=== PATIENT | male | born 1955 | race African-American/Black ===

== ENCOUNTER 2019-07-12 03:50 | Emergency (ER) | payer MEDICARE, BC, OTHER ==
[2019-07-12] MEDS ORDERED: LIDOCAINE 1% INJ-PF (10 MG/ML) 30 ML SDV INJ ONE (05:40)
[2019-07-12] MEDS ORDERED: LIDOCAINE 4% TRANSPARENT DRESSING 5 GM KIT TP ONE (05:42)
[2019-07-12] MEDS ORDERED: DIPH/PERTUSS(ACELL)/TETANUS VAC/PF 0.5 ML SYR (>=10YO) IM ONE (05:42)
--- NOTE | 2019-07-12 05:44 | ER Document Report ---
ED Wound - General Chief Complaint: Fall Injury Stated Complaint: FALL/RIGHT EAR LACERATION Time Seen by Provider: 07/12/19 05:28 Primary Care Provider: MELIDA GIANG MD [Primary Care Provider] - Follow up as needed Notes: Patient is a 64-year-old male that comes emergency department for chief complaint of a fall, he states that he tripped, fell forward, collided on a concrete wall and fell to the concrete ground. He states this caused a laceration to the back of his right ear that would not stop bleeding. He reports a very mild headache. He denies loss of consciousness, vomiting, focal numbness or weakness, visual changes. He also sustained a very mild abrasions to his right elbow and right knee without swelling or current pain to those areas. He denies any other complaints or any other injuries. He has not on a blood thinner except baby aspirin daily. Family at bedside. TRAVEL OUTSIDE OF THE [place] IN LAST 30 DAYS: No - Related Data Allergies/Adverse Reactions: No Known Allergies Allergy (Unverified 09/27/11 20:11) Home Medications: synthroid daily. asa daily Past Medical History - General Information source: Patient - Social History Smoking Status: Never Smoker Frequency of alcohol use: None Drug Abuse: None Lives with: Family Family History: Reviewed & Not Pertinent Patient has suicidal ideation: No Patient has homicidal ideation: No Pulmonary Medical History: Denies: Hx Tuberculosis Past Surgical History: Denies: Hx Appendectomy, Hx Bowel Surgery, Hx Cholecystectomy, Hx Coronary Artery Bypass Graft, Hx Gastric Bypass Surgery, Hx Herniorrhaphy, Hx Pacemaker, Hx Tonsillectomy - Immunizations Hx Diphtheria, Pertussis, Tetanus Vaccination: Yes Review of Systems - Review of Systems Constitutional: See HPI EENT: No symptoms reported Cardiovascular: No symptoms reported Respiratory: No symptoms reported Gastrointestinal: No symptoms reported Genitourinary: No symptoms reported Male Genitourinary: No symptoms reported Musculoskeletal: See HPI Skin: No symptoms reported Hematologic/Lymphatic: No symptoms reported Neurological/Psychological: See HPI Physical Exam - Vital signs Vitals: Temp Pulse Resp BP Pulse Ox 98.1 F 72 20 147/78 H 99 07/12/19 03:56 07/12/19 03:56 07/12/19 03:56 07/12/19 03:56 07/12/19 03:56 - Notes Notes: GENERAL: Alert, interacts well. No acute distress. HEAD: Normocephalic. Dried blood over the right posterior ear at the helix without swelling. Does not appear to affect the cartilage of the ear. No other signs of trauma over the head. EYES: Pupils equal, round, and reactive to light. Extraocular movements intact. ENT: Oral mucosa moist, tongue midline. Oropharynx unremarkable. Airway patent. Nares patent, no nasal septal hematoma, TM's intact. NECK: Full range of motion. Supple. Trachea midline. LUNGS: Clear to auscultation bilaterally, no wheezes, rales, or rhonchi. No respiratory distress. No signs of trauma HEART: Regular rate and rhythm. No murmur ABDOMEN: Soft, non-tender. Non-distended. Bowel sounds present in all 4 quadrants. No signs of trauma GENITOURINARY: Deferred EXTREMITIES: Abrasion over the right elbow and over the right knee at the joints. No soft tissue swelling, full range of motion, no tenderness over the bony areas, normal distal neurovascular exam. Unremarkable extremities otherwise. BACK: no cervical, thoracic, lumbar midline tenderness. No saddle anesthesia, normal distal neurovascular exam. Moves all extremities in full range of motion. NEUROLOGICAL: Alert and oriented x3. Normal speech. Cranial nerves II through XII grossly intact. PSYCH: Normal affect, normal mood. SKIN: Warm, dry, normal turgor. No rashes or lesions noted. Course - Re-evaluation Re-evalutation: CT of the head and neck performed because of head injury and advanced age along with mechanical fall. These were negative. No bony tenderness over the abrasions over the extremities. Laceration over the helix of the right ear was repaired with sutures after thorough cleansing. Discussed wound care, head injury precautions follow-up, return precautions. Patient and state appreciation and agreement. Stable at time of discharge. - Vital Signs Vital signs: Temp Pulse Resp BP Pulse Ox 98.8 F 51 L 18 131/79 H 98 07/12/19 07:30 07/12/19 07:30 07/12/19 07:30 07/12/19 07:30 07/12/19 07:30 Procedures - Laceration/Wound Repair Right ear (mid outer helix) Wound length (cm): 1.5 Wound's Depth, Shape: Linear Laceration pre-procedure: Sterile PPE donned, Sterile drapes applied, Shur-Clens applied Anesthetic type: Other - l.e.t. Wound Repaired With: Sutures Suture Size/Type: 5:0, Nylon Number of Sutures: 3 Layer Closure?: No Post-procedure wound care: Sterile dressing applied Post-procedure NV exam normal: Yes Complications: No Discharge - Discharge Clinical Impression: Skin abrasion Head injury Qualifiers: Encounter type: initial encounter Qualified Code(s): S09.90XA - Unspecified injury of head, initial encounter Laceration of ear Qualifiers: Encounter type: initial encounter Laterality: right Qualified Code(s): S01.311A - Laceration without foreign body of right ear, initial encounter Condition: Stable Disposition: HOME, SELF-CARE Additional Instructions: The laceration has been repaired with sutures, these need to be removed in 5 to 7 days at a medical facility. Keep clean, clean with soap and water, dab dry, you can apply thin film of topical antibiotic to the area. The CAT scan of your head and neck do not show any concerning findings. You may have some postconcussive symptoms. Please follow head injury precautions and postconcussive syndrome instructions listed below. Return for any concerning symptoms. Head Injury Precautions At this point, there is no evidence that your head injury is serious. Observation is necessary, however. Limit activity for the first 24 hours. During the first 24 hours, check to see approximately every two to three hours that the patient is easily arousable, responds normally, and can perform common tasks such as walking without difficulty. Contact your doctor or go to the hospital if any of the following things occur: Persistent vomiting, difficulty in arousing the patient, worsening or continued headache, or failure to improve as expected. Head injuries can cause symptoms that persist for a few days or even a few weeks. Post-Concussion Syndrome Post-concussion syndrome often follows a mild head injury. Dizziness, mild nausea, mild headache, trouble concentrating, and a general sense of "not being right" may persist for a week or two. This is a frequent complication of concussion. However, if the symptoms worsen, or new symptoms develop, you should be re-examined by the physician. There is no specific cure for post-concussion syndrome. You can take mild pain medication such as ibuprofen or acetaminophen. While you should not drive if you are dizzy, you can get back to your regular activities as quickly as the symptoms will allow. And while vigorous exercise may worsen the headache, mild physical activity often is helpful. Sitting and thinking about your symptoms will worsen them. If difficulties continue, you may need referral for special therapy to help you regain full mental function. Call the physician if you are worsening, or if symptoms are still present in one week. Report any new symptoms immediately. Referrals: MELIDA GIANG MD [Primary Care Provider] - Follow up as needed
[2019-07-12] MEDS ORDERED: LIDOCAINE 4%/TETRACAINE 0.5%/EPI 0.18% 5 ML TOPICAL SOLN TOP ONE (06:24)
--- NOTE | 2019-07-12 07:19 | RADIOLOGY REPORT (SQ) ---
CT cervical spine without contrast on 07/12/2019 at 5:53 AM CLINICAL INDICATION: Fall, head injury, per protocol for mechanism of injury TECHNIQUE: Multiple axial images are obtained throughout the cervical spine without the administration of contrast. Sagittal and coronal reformatted images are also performed and reviewed. This exam was performed according to our departmental dose-optimization program, which includes automated exposure control, adjustment of the mA and/or kV according to patient size and/or use of iterative reconstruction technique. Total DLP is 424.23 mGy*cm. COMPARISON: None FINDINGS: Degenerative disc disease is noted worse from C4 through C7. Reformatted images reveal normal alignment of the cervical spine. There is no prevertebral soft tissue swelling. There are no acute fracture lines. No definite disc herniation is noted. IMPRESSION: Degenerative changes with no acute abnormality.
--- NOTE | 2019-07-12 07:21 | RADIOLOGY REPORT (SQ) ---
CT head without contrast on 07/12/2019 at 5:50 AM CLINICAL INDICATION: Head injury, per protocol for mechanism of injury TECHNIQUE: Multiple axial images are obtained throughout the head without the administration of contrast. This exam was performed according to our departmental dose-optimization program, which includes automated exposure control, adjustment of the mA and/or kV according to patient size and/or use of iterative reconstruction technique. Total DLP is 1150.19 mGy*cm. COMPARISON: None FINDINGS: There is no hydrocephalus. There is no CT evidence of acute infarct. There is no hemorrhage. There are no abnormal extra-axial fluid collections. There is no mass, mass effect or midline shift. No bony abnormality is noted. IMPRESSION: No acute intracranial abnormality.
[2019-07-12 07:31] VITALS: BP 131/79
== END 2019-07-12 07:38 | disposition home or self-care (01) ==
LOC: ER 03:50
DX: S01.311A Laceration without foreign body of right ear, initial encounter (principal); S09.90XA Unspecified injury of head, initial encounter; S50.311A Abrasion of right elbow, initial encounter; S80.211A Abrasion, right knee, initial encounter; R51 Headache; W19.XXXA Unspecified fall, initial encounter; W22.01XA Walked into wall, initial encounter; Z79.82 Long term (current) use of aspirin; Z79.899 Other long term (current) drug therapy
CPT/HCPCS: 99283; 90471; 70450; 72125; 90715; 12011; J3490 ×2